=== PATIENT | female | born 1990 | race American Indian/Alaskan Native ===

== ENCOUNTER 2018-01-12 14:18 | Emergency (ER) | payer MEDICAID ==
[2018-01-12 15:31] LABS: Alanine Aminotransferase 6 units/L (7-56); Albumin 4.5 g/dL (3.9-5); BUN/Creatinine Ratio 10; Blood Urea Nitrogen 6 mg/dL (7-17); Calcium 9.5 mg/dL (8.4-10.2); Hemolysis Index 10
[2018-01-12 15:47] LABS: Basophils % (Auto) 0.5 % (0.0-1.8); Eosinophils # (Auto) 0.1 K/mm3 (0.0-0.4); Eosinophils % (Auto) 1.9 % (0.0-4.3); Hematocrit 36.9 % (30.3-42.9); Hemoglobin 12.1 gm/dl (10.1-14.3); Lymphocytes # (Auto) 1.3 K/mm3 (1.2-5.4); Lymphocytes % (Auto) 36.5 % (13.4-35.0); Mean Corpuscular HGB Conc 33 % (30-34); Mean Corpuscular Hemoglobin 31 pg (28-32); Mean Corpuscular Volume 93 fl (79-97); Monocytes # (Auto) 0.2 K/mm3 (0.0-0.8); Monocytes % (Auto) 6.9 % (0.0-7.3); Platelet Count 148 K/mm3 (140-440); Red Blood Count 3.96 M/mm3 (3.65-5.03); Red Cell Distribution Width 13.2 % (13.2-15.2)
--- NOTE | 2018-01-12 18:23 | Emergency Department Report ---
Blank Doc - Documentation Documentation: Patient is 28-year-old female states that for the past 10 days she's been having daily headaches as well as syncopal episodes when she stands. Patient feels dizzy when she stands that she is supposedly passes out. This happens every day. Patient denies any chest pain shortness of breath fevers chills nausea vomiting at this time. Patient states she drinks a lot of juice and not a lot of water. Patient's is within a month from her last menses. Patient's physical exam is within normal limits is alert and oriented 3 has no physical exam findings. Orthostatics will be done as well as a test. Patient David that she may be anemic however her hemoglobin is 12.1.
[2018-01-12] MEDS ORDERED: NACL 0.9% 1000 ML 1,000 ML IV ONE ×2 (18:48)
[2018-01-12 19:09] LABS: Bilirubin,Urine NEG (Negative); Blood,Urine NEG (Negative); Color,Urine Yellow (Yellow); HCG Qualitative,Urine Negative (Negative); Mucus,Urine FEW /HPF; Protein,Urine <15 mg/dL mg/dL (Negative); Urobilinogen,Urine < 2.0 mg/dL (<2.0)
--- NOTE | 2018-01-12 19:52 | Cat Scan Report ---
FINAL REPORT PROCEDURE: CT HEAD/BRAIN WO CON TECHNIQUE: Computerized tomography of the head was performed without contrast material. HISTORY: headache w dizziness COMPARISON: No prior studies are available for comparison. FINDINGS: Brain: There is a 6.8 millimeter low-density area in the anterior aspect of the right external capsule on image 15 series 2 which may reflect a small old lacunar infarct. No evidence of intracranial hemorrhage. No parenchymal hemorrhage, mass lesions or mass effect are seen. No abnormal extraxial fluid collects or masses are seen. Ventricles: Ventricles are normal size and are midline. Bone Windows: No evidence of skull fracture. Paranasal sinuses: 5 millimeter nodular density seen posterior ethmoid air cell on the right suggesting a small polyp or mucous retention cyst. Visualized portions of the paranasal sinuses otherwise appear clear. Mastoid air cells: Clear IMPRESSION: Possible old lacunar infarct anterior aspect right external capsule. If clinically indicated MRI of the brain could be obtained for further evaluation. Minimal paranasal sinus disease as described. No other abnormalities are identified.
--- NOTE | 2018-01-12 20:14 | Emergency Department Report ---
ED Dizziness HPI - General Chief Complaint: Medical Clearance Stated Complaint: HEADACHE/DIZZINESS Time Seen by Provider: 01/12/18 17:55 Source: patient Mode of arrival: Ambulatory Limitations: No Limitations - History of Present Illness Initial Comments: This is a 28-year-old female nontoxic, well nourished in appearance, no acute signs of distress presents to the ED with c/o of headache and dizziness x10 days. Patient describes headache as diffuse with level of 3 out of 10. Patient denies thunderclap headache. Patient denies any radiation of pain. Patient denies any head trauma. Patient stated that symptoms of dizziness occurs mostly in the morning when she wakes up. Patient stated that she develops near syncopal episodes but denies any syncopal episodes. Patient denies any visual changes. Patient denies worse headache. Patient stated that darkness makes headache better and bright lights make the headache worse. Patient denies any numbness, tingling, fever, chills, nausea, vomiting, chest pain, shortness of breath, stiff neck. Patient denies any radiation of pain. Patient denies any allergies or PMH. MD Complaint: dizziness, lightheadedness, near syncope -: week(s) (1.5) Timing: intermittent Description: lightheadedness, near-syncope History of Same: No History of Trauma: No Severity: mild Improves With: remaining still Worsens With: position Associated Symptoms: denies other symptoms. denies: ataxia, chest pain, confusion, cough, diaphoresis, fever/chills, loss of appetite, malaise, rash, seizure, shortness of breath, syncope, weakness - Related Data Previous Rx's Medication Instructions Recorded Last Taken Type Acetaminophen [Acetaminophen TAB] 650 mg PO Q6HR PRN #90 tablet 01/12/15 Unknown Rx Vit-Fe Fumar-FA [ 1 tab PO QDAY #60 tablet 01/12/15 Unknown Rx Vitamin] Nitrofurantoin [place]/M-Cryst 100 mg PO Q12HR #14 capsule 01/13/15 Unknown Rx [Macrobid CAP] Ibuprofen [Motrin] 600 mg PO Q8H PRN #30 tablet 01/12/18 Unknown Rx Sulfamethoxazole/Trimethoprim 1 each PO BID #14 tablet 01/12/18 Unknown Rx [Bactrim DS TAB] Allergies Allergy/AdvReac Type Severity Reaction Status Date / Time No Known Allergies Allergy Verified 01/12/15 20:10 ED Review of Systems ROS: Stated complaint: HEADACHE/DIZZINESS Other details as noted in HPI Constitutional: denies: chills, fever Eyes: denies: eye pain, eye discharge, vision change ENT: denies: ear pain, throat pain Respiratory: denies: cough, shortness of breath, wheezing Cardiovascular: denies: chest pain, palpitations Endocrine: no symptoms reported Gastrointestinal: denies: abdominal pain, nausea, diarrhea Genitourinary: denies: urgency, dysuria, discharge Musculoskeletal: denies: back pain, joint swelling, arthralgia Skin: denies: rash, lesions Neurological: headache. denies: weakness, paresthesias, confusion Psychiatric: denies: anxiety, depression Hematological/Lymphatic: denies: easy bleeding, easy bruising ED Past Medical Hx - Past Medical History Hx Headaches / Migraines: Yes Additional medical history: low iron - Social History Smoking Status: Never Smoker - Medications Home Medications: Home Medications Medication Instructions Recorded Confirmed Last Taken Type Acetaminophen [Acetaminophen TAB] 650 mg PO Q6HR PRN #90 tablet 01/12/15 Unknown Rx Vit-Fe Fumar-FA [ 1 tab PO QDAY #60 tablet 01/12/15 Unknown Rx Vitamin] Nitrofurantoin [place]/M-Cryst 100 mg PO Q12HR #14 capsule 01/13/15 Unknown Rx [Macrobid CAP] Ibuprofen [Motrin] 600 mg PO Q8H PRN #30 tablet 01/12/18 Unknown Rx Sulfamethoxazole/Trimethoprim 1 each PO BID #14 tablet 01/12/18 Unknown Rx [Bactrim DS TAB] ED Physical Exam - General Limitations: No Limitations General appearance: alert, in no apparent distress - Head Head exam: Present: atraumatic, normocephalic - Eye Eye exam: Present: normal appearance Pupils: Present: normal accommodation - ENT ENT exam: Present: normal exam, mucous membranes moist - Neck Neck exam: Present: normal inspection, full ROM. Absent: tenderness, meningismus - Respiratory Respiratory exam: Present: normal lung sounds bilaterally. Absent: respiratory distress, wheezes, rales, rhonchi, stridor, chest wall tenderness, accessory muscle use, decreased breath sounds, prolonged expiratory - Cardiovascular Cardiovascular Exam: Present: regular rate, normal rhythm, normal heart sounds. Absent: bradycardia, tachycardia, irregular rhythm, systolic murmur, diastolic murmur, rubs, gallop - GI/Abdominal GI/Abdominal exam: Present: soft, normal bowel sounds. Absent: distended, tenderness, guarding, rebound, rigid, diminished bowel sounds - Rectal Rectal exam: Present: deferred - Extremities Exam Extremities exam: Present: normal inspection, full ROM, normal capillary refill. Absent: tenderness - Back Exam Back exam: Present: normal inspection, full ROM - Neurological Exam Neurological exam: Present: alert, oriented X3, CN II-XII intact, normal gait - Expanded Neurological Exam Expanded Patient oriented to: Present: person, place, time Cranial nerves: EOM's Intact: Normal, Gag Reflex: Normal, Facial Sensation: Normal Cerebellar function: Finger to Nose: Normal Upper motor neuron: Pronator Drift: Normal, Sensory Extinction: Normal Sensory exam: Upper Extremity Light Touch: Normal, Upper Extremity Pin Prick: Normal, Upper Extremity Temperature: Normal, UE 2 Point Discrimination: Normal, Lower Extremity Light Touch: Normal, Lower Extremity Pin Prick: Normal, Lower Extremity Temperature: Normal, LE 2 Point Discrimination: Normal Motor strength exam: RUE: 5, LUE: 5, RLE: 5, LLE: 5 Best Eye Response (John): (4) open spontaneously Best Motor Response (Gordon): (6) obeys commands Best Verbal Response (Gordon): (5) oriented John Total: 15 - Psychiatric Psychiatric exam: Present: normal affect, normal mood - Skin Skin exam: Present: warm, dry, intact, normal color. Absent: rash ED Course Vital Signs 01/12/18 01/12/18 01/12/18 14:22 18:27 20:14 Temperature 98.8 F Pulse Rate 81 Pulse Rate [ 68 Lying] Pulse Rate [ 90 Sitting] Respiratory 16 Rate Blood Pressure 118/67 Blood Pressure 108/79 [Lying] Blood Pressure [Right] Blood Pressure 112/70 [Sitting] O2 Sat by Pulse 100 Oximetry 01/12/18 20:15 Temperature Pulse Rate 90 Pulse Rate [ Lying] Pulse Rate [ Sitting] Respiratory 18 Rate Blood Pressure Blood Pressure [Lying] Blood Pressure 112/70 [Right] Blood Pressure [Sitting] O2 Sat by Pulse 99 Oximetry - Reevaluation(s) Reevaluation #1: 01/12/18 20:16 Patient is speaking in full sentences with no signs of distress noted. - Consultations Consultation #1: 01/12/18 20:14 Patient has been consulted with Janeen Iniguez about patient history, physical exam, and labs/Ct scan and examined and screened patient and agrees to ED plan of care and discharge plan of care. ED Medical Decision Making - Lab Data Result diagrams: 01/12/18 14:55 01/12/18 14:55 - Medical Decision Making This is a 28-year-old female that presents with headache, dizziness, and orthostatic dizziness and UTI. Patient is stable and was examined by me and Dr. Cadena. Ct of head/brain obtained and shows an old infract. No further evaluation need as per MD. Patient was notified of the CT report with no questions noted by the patient. Patient is neurologically stable. There is no stiff neck or neck pain. Patient received 2L of Normal saline. Vital signs are stable and orthostatic vital signs stable prior to discharge. Patient is afebrile. Patient is discharged with motrin and was instructed to increase hydration. US indictated UTI. Patient will be discharged with Bactrim. Patient was referred to Follow-up with a primary care/neurologist doctor in 3-5 days or if symptoms worsen and continue return to emergency room as soon as possible. At time of discharge, the patient does not seem toxic or ill in appearance. No acute signs of distress noted. Patient agrees to discharge treatment plan of care. No further questions noted by the patient. Critical care attestation.: If time is entered above; I have spent that time in minutes in the direct care of this critically ill patient, excluding procedure time. ED Disposition Clinical Impression: Dizziness, Orthostatic dizziness Headache Qualifiers: Headache type: unspecified Headache chronicity pattern: acute headache Intractability: not intractable Qualified Code(s): R51 - Headache UTI (urinary tract infection) Qualifiers: Urinary tract infection type: site unspecified Hematuria presence: without hematuria Qualified Code(s): N39.0 - Urinary tract infection, site not specified Disposition: - TO HOME OR SELFCARE Is pt being admited?: No Does the pt Need Aspirin: No Condition: Stable Instructions: Ibuprofen (By mouth), Sulfamethoxazole/Trimethoprim (By mouth) Additional Instructions: Follow-up with a primary care doctor in 3-5 days or if symptoms worsen and continue return to emergency room as soon as possible. When you wake up, take a few minutes before standing from your sitting position Prescriptions: Ibuprofen [Motrin] 600 mg PO Q8H PRN #30 tablet PRN Reason: Pain Sulfamethoxazole/Trimethoprim [Bactrim DS TAB] 1 each PO BID #14 tablet Referrals: PRIMARY CARE, [Primary Care Provider] - 3-5 Days STEVEN WEST MD [Staff Physician] - 3-5 Days [facility] [Outside] - 3-5 Days [facility] [Outside] - 3-5 Days Forms: Work/School Release Form(ED)
[2018-01-12 21:10] VITALS: BP 105/70
== END 2018-01-12 21:15 | disposition home or self-care (01) ==
LOC: ED 14:18
DX: R42 Dizziness and giddiness (principal); N39.0 Urinary tract infection, site not specified; G43.909 Migraine, unspecified, not intractable, without status migrainosus
CPT/HCPCS: 36415; 70450; 80053; 81001; 81025; 85025; 96360; 99284; J7030